=== PATIENT | male | born 1965 | race Caucasian/White ===

== ENCOUNTER 2023-06-08 18:58 | Inpatient (IN) | payer SELFPAY ==
[2023-06-08 19:53] VITALS: BMI 29.8
[2023-06-08] MEDS ORDERED: Acetaminophen 650 MG Suppository PR PRN (22:58)
[2023-06-08] MEDS ORDERED: Dextrose 50% Abboject 50 ML SYRINGE SLOW IVP PRN (23:00)
[2023-06-08] MEDS ORDERED: Dextrose 5% in Water 1,000 ML IV PRN (23:00)
[2023-06-08] MEDS ORDERED: Glucagon 1 MG/ML KIT IM PRN (23:00)
[2023-06-08] MEDS ORDERED: Morphine 4 MG/ML VIAL SLOW IVP PRN (23:07)
[2023-06-09] MEDS: Piperacillin/Tazobactam 3.375 GM in Sodium Chloride 0.9% 100 ML IVPB SCH (00:30)
[2023-06-09] MEDS: Vancomycin (BATCH) 1.25 GM in Premix 1 BAG IVPB SCH (01:51)
[2023-06-09] MEDS: Ondansetron PF 4 MG/2 ML Vial IVP PRN (05:24)
[2023-06-09 05:47] LABS: #Basophils 0.1 thou/uL (0.0-0.2); #Eosinphils 0.3 thou/uL (0.0-0.7); #Monocytes 0.5 thou/uL (0.11-0.59); #Neutrophils 6.9 thou/uL (1.40-6.50); %Basophils 0.7 % (0.0-1.0); %Eosinophils 3.1 % (0.0-10.0); %Lymphocytes 12.2 % (21.0-51.0); %Monocytes 5.8 % (0.0-10.0); %Neutrophils 77.6 % (42.0-75.0); Hematocrit 31.3 % (42.0-52.0); Hemoglobin 10.6 g/dL (14.0-18.0); Mean Corpuscular HGB CONC 33.9 g/dL (32.0-36.0); Mean Corpuscular Hemoglobin 28.9 pg (27.0-31.0); Mean Corpuscular Volume 85.3 fl (78.0-98.0); Mean Platelet Volume 9.2 fL (7.4-10.4); Platelet Count 236 10x3/uL (130-400); RBC Distribution Width 12.3 % (11.5-14.5); Red Blood Cell (RBC) Count 3.67 mill/uL (4.70-6.10); White Blood Cell (WBC) Count 8.9 10x3/uL (4.8-10.8)
[2023-06-09 06:08] LABS: Anion Gap 13 mmol/L (10-20); BUN (Urea Nitrogen) 16 mg/dL (8.4-25.7); Calc. Creatinine Clearance 99 mL/min (70-130); Calcium 8.5 mg/dL (7.8-10.44); Carbon Dioxide 21 mmol/L (22-29); Chloride 102 mmol/L (98-107); Estimated GFR 75; Glucose 170 mg/dL (70-105); Sodium 132 mmol/L (136-145)
[2023-06-09 08:09] LABS: Hemoglobin A1c 7.6 % (4.0-6.0)
[2023-06-09] MEDS ORDERED: Ondansetron PF 4 MG/2 ML Vial ONE ×2 (09:52→12:55)
[2023-06-09] MEDS ORDERED: Lidocaine 1% PF 5 ML VIAL ONE (09:52)
[2023-06-09] MEDS ORDERED: Midazolam HCl 2 mg/2 ml Vial ONE (09:52)
[2023-06-09] MEDS ORDERED: fentaNYL PF 100 MCG/2 ML SYRINGE ONE (09:52)
[2023-06-09] MEDS ORDERED: PROPOFOL 20 ML ONE (09:52)
[2023-06-09] MEDS ORDERED: SUCCINYLCHOLINE/SOD CL,ISO/PF 200 MG/10 ML SYRINGE FS ONE (09:59)
[2023-06-09] MEDS ORDERED: PHENYLEPHRINE-NS 100 MCG/ML 10 ML SYRINGE ONE ×2 (10:03→11:45)
[2023-06-09] MEDS ORDERED: Rocuronium Bromide 10 MG/ML (10ML VIAL) ONE (10:15)
[2023-06-09] MEDS ORDERED: Lidocaine 1% (PF) 30 ML VIAL ONE (10:33)
[2023-06-09] MEDS ORDERED: HYDROmorphone 2 MG/ML VIAL ONE (11:04)
[2023-06-09] MEDS ORDERED: Ondansetron PF 4 MG/2 ML Vial IVP PRN (12:28)
[2023-06-09] MEDS ORDERED: Ipratropium/Albuterol 3 ML NEB NEB PRN (12:28)
[2023-06-09] MEDS ORDERED: Promethazine HCl 25 MG/ML VIAL IM PRN ×2 (12:28→12:31)
[2023-06-09] MEDS ORDERED: Ondansetron HCl/PF 4 MG/2 ML Vial IVP PRN (12:31)
[2023-06-09] MEDS ORDERED: Promethazine HCl 25 MG SUPP PR PRN (12:38)
[2023-06-09] MEDS ORDERED: fentaNYL 50 mcg/mL 1 mL Vial ONE (12:49)
[2023-06-09] MEDS ORDERED: Promethazine HCl 25 MG/ML VIAL ONE (13:02)
[2023-06-09] MEDS ORDERED: Ketorolac Tromethamine 30 MG (1 mL) VIAL ONE (13:18)
[2023-06-09] MEDS ORDERED: Gabapentin 300 MG CAP ONE (13:31)
[2023-06-09] MEDS: Gabapentin 300 MG CAP PO SCH ×2 (13:35→21:11)
[2023-06-09] MEDS: Morphine 4 MG/ML VIAL SLOW IVP PRN (14:22)
[2023-06-09] MEDS: Vancomycin 1 GM in Premix 1 BAG IVPB SCH (14:25)
[2023-06-09] MEDS: Methocarbamol 500 MG TAB PO SCH ×2 (14:25→18:17)
[2023-06-09] MEDS ORDERED: Gabapentin 300 MG CAP PO SCH (15:00)
[2023-06-09] MEDS: Acetaminophen 325 MG TAB PO PRN (18:17)
[2023-06-09] MEDS: HumaLOG 300 UNITS/3 ML VIAL SC PRN (21:13)
[2023-06-10] MEDS: Ondansetron ODT 4 MG TAB PO PRN (04:31)
[2023-06-10] MEDS: HumaLOG 300 UNITS/3 ML VIAL SC PRN (04:48)
[2023-06-10 06:28] LABS: #Eosinphils 0.2 thou/uL (0.0-0.7); #Monocytes 0.7 thou/uL (0.11-0.59); #Neutrophils 7.2 thou/uL (1.40-6.50); %Basophils 0.4 % (0.0-1.0); %Eosinophils 1.7 % (0.0-10.0); %Lymphocytes 11.2 % (21.0-51.0); %Monocytes 7.8 % (0.0-10.0); %Neutrophils 78.4 % (42.0-75.0); Hematocrit 25.1 % (42.0-52.0); Hemoglobin 8.3 g/dL (14.0-18.0); Mean Corpuscular HGB CONC 33.1 g/dL (32.0-36.0); Mean Corpuscular Hemoglobin 29.2 pg (27.0-31.0); Mean Corpuscular Volume 88.4 fl (78.0-98.0); Mean Platelet Volume 9.2 fL (7.4-10.4); Platelet Count 212 10x3/uL (130-400); RBC Distribution Width 12.5 % (11.5-14.5); Red Blood Cell (RBC) Count 2.84 mill/uL (4.70-6.10); White Blood Cell (WBC) Count 9.2 10x3/uL (4.8-10.8)
[2023-06-10 06:47] LABS: Vancomycin, Random 29.3 ug/mL (See Comment)
[2023-06-10 06:50] LABS: Anion Gap 11 mmol/L (10-20); BUN (Urea Nitrogen) 24 mg/dL (8.4-25.7); Calc. Creatinine Clearance 50 mL/min (70-130); Carbon Dioxide 22 mmol/L (22-29); Chloride 103 mmol/L (98-107); Estimated GFR 33; Glucose 179 mg/dL (70-105); Potassium 4.3 mmol/L (3.5-5.1); Sodium 132 mmol/L (136-145)
[2023-06-10] MEDS: Lactated Ringer's 1,000 ML IV SCH (08:07)
[2023-06-10] MEDS: HYDROcodone/Acetaminophen 5/325 mg Tablet PO PRN (12:13)
[2023-06-10 12:50] LABS: Hemoglobin 8.2 g/dL (14.0-18.0)
[2023-06-11] MEDS: Vancomycin HCl 750 MG in Sodium Chloride 0.9% 250 ML 250 ML IVPB SCH (02:12)
[2023-06-11 05:21] LABS: Hematocrit 23.3 % (42.0-52.0); Hemoglobin 7.5 g/dL (14.0-18.0); Mean Corpuscular HGB CONC 32.2 g/dL (32.0-36.0); Mean Corpuscular Hemoglobin 29.1 pg (27.0-31.0); Mean Corpuscular Volume 90.3 fl (78.0-98.0); Mean Platelet Volume 9.4 fL (7.4-10.4); Platelet Count 207 10x3/uL (130-400); RBC Distribution Width 12.7 % (11.5-14.5); Red Blood Cell (RBC) Count 2.58 mill/uL (4.70-6.10); White Blood Cell (WBC) Count 10.1 10x3/uL (4.8-10.8)
[2023-06-11 05:40] LABS: Anion Gap 12 mmol/L (10-20); BUN (Urea Nitrogen) 28 mg/dL (8.4-25.7); Calc. Creatinine Clearance 38 mL/min (70-130); Carbon Dioxide 21 mmol/L (22-29); Chloride 104 mmol/L (98-107); Estimated GFR 24; Glucose 161 mg/dL (70-105); Potassium 4.4 mmol/L (3.5-5.1); Sodium 133 mmol/L (136-145)
[2023-06-11 05:44] LABS: Vancomycin, Random 33.6 ug/mL (See Comment)
[2023-06-11] MEDS ORDERED: Vancomycin Dose by Levels Sliding Scale (Wt 71-99) FS SCH (11:30)
[2023-06-11] MEDS: Lactated Ringer's 1,000 ML IV SCH (12:28)
[2023-06-11 13:46] LABS: Hematocrit 24.4 % (42.0-52.0); Hemoglobin 8.1 g/dL (14.0-18.0)
[2023-06-12 03:00] LABS: Vancomycin, Trough 15.3 ug/mL
[2023-06-12] MEDS: Vancomycin HCl 500 MG in Sodium Chloride 0.9% 100 ML IV SCH (07:00)
[2023-06-12 08:15] LABS: Hematocrit 24.6 % (42.0-52.0); Hemoglobin 7.9 g/dL (14.0-18.0); Mean Corpuscular HGB CONC 32.1 g/dL (32.0-36.0); Mean Corpuscular Hemoglobin 28.2 pg (27.0-31.0); Mean Corpuscular Volume 87.9 fl (78.0-98.0); Mean Platelet Volume 9.3 fL (7.4-10.4); Platelet Count 273 10x3/uL (130-400); RBC Distribution Width 12.7 % (11.5-14.5); White Blood Cell (WBC) Count 8.9 10x3/uL (4.8-10.8)
[2023-06-12 08:42] LABS: Anion Gap 15 mmol/L (10-20); BUN (Urea Nitrogen) 25 mg/dL (8.4-25.7); Calc. Creatinine Clearance 40 mL/min (70-130); Calcium 8.8 mg/dL (7.8-10.44); Carbon Dioxide 22 mmol/L (22-29); Chloride 104 mmol/L (98-107); Estimated GFR 26; Glucose 162 mg/dL (70-105); Potassium 5.2 mmol/L (3.5-5.1); Sodium 136 mmol/L (136-145)
[2023-06-12] MEDS: Insulin Regular 300 UNITS/3 ML VIAL IVP SCH (10:07)
[2023-06-12] MEDS: Furosemide 40 MG (4 mL) VIAL SLOW IVP SCH (15:00)
[2023-06-13 05:56] LABS: Hematocrit 22.4 % (42.0-52.0); Hemoglobin 7.5 g/dL (14.0-18.0); Mean Corpuscular HGB CONC 33.5 g/dL (32.0-36.0); Mean Corpuscular Volume 86.5 fL (78.0-98.0); Mean Platelet Volume 8.9 fL (7.4-10.4); Platelet Count 256 10x3/uL (130-400); RBC Distribution Width 12.5 % (11.5-14.5); Red Blood Cell (RBC) Count 2.59 mill/uL (4.70-6.10)
[2023-06-13 06:16] LABS: Anion Gap 12 mmol/L (10-20); BUN (Urea Nitrogen) 27 mg/dL (8.4-25.7); Calc. Creatinine Clearance 41 mL/min (70-130); Calcium 8.6 mg/dL (7.8-10.44); Carbon Dioxide 27 mmol/L (22-29); Chloride 101 mmol/L (98-107); Estimated GFR 26; Glucose 213 mg/dL (70-105); Sodium 136 mmol/L (136-145); Vancomycin, Trough 11.7 ug/mL
[2023-06-13] MEDS: Albumin 25% 25 GM (100 mL) BOT IVPB SCH (09:29)
[2023-06-13] MEDS: EPOETIN ALFA-EPBX (ESRD) 40,000 UNITS/ML VIAL SC SCH (13:23)
[2023-06-13] MEDS: Vancomycin HCl 750 MG in Sodium Chloride 0.9% 250 ML 250 ML IVPB SCH (13:25)
[2023-06-14 06:16] LABS: Anion Gap 14 mmol/L (10-20); BUN (Urea Nitrogen) 29 mg/dL (8.4-25.7); Calc. Creatinine Clearance 47 mL/min (70-130); Calcium 8.8 mg/dL (7.8-10.44); Carbon Dioxide 24 mmol/L (22-29); Chloride 101 mmol/L (98-107); Estimated GFR 31; Glucose 160 mg/dL (70-105); Magnesium 2.3 mg/dL (1.6-2.6); Potassium 4.3 mmol/L (3.5-5.1); Sodium 135 mmol/L (136-145)
[2023-06-14 13:04] LABS: Vancomycin, Trough 6.6 ug/mL
[2023-06-15 05:34] LABS: Hematocrit 23.9 % (42.0-52.0); Hemoglobin 7.7 g/dL (14.0-18.0); Mean Corpuscular HGB CONC 32.2 g/dL (32.0-36.0); Mean Corpuscular Hemoglobin 28.3 pg (27.0-31.0); Mean Corpuscular Volume 87.9 fL (78.0-98.0); Mean Platelet Volume 9.4 fL (7.4-10.4); Platelet Count 279 10x3/uL (130-400); RBC Distribution Width 12.8 % (11.5-14.5); Red Blood Cell (RBC) Count 2.72 mill/uL (4.70-6.10)
[2023-06-15 06:17] LABS: Anion Gap 16 mmol/L (10-20); BUN (Urea Nitrogen) 28 mg/dL (8.4-25.7); Calc. Creatinine Clearance 48 mL/min (70-130); Calcium 8.8 mg/dL (7.8-10.44); Carbon Dioxide 24 mmol/L (22-29); Chloride 101 mmol/L (98-107); Estimated GFR 31; Glucose 171 mg/dL (70-105); Potassium 4.1 mmol/L (3.5-5.1); Sodium 137 mmol/L (136-145)
[2023-06-15] MEDS: NIFEdipine XL 30 MG ER.TAB PO SCH (08:47)
[2023-06-15] MEDS: CEFAZOLIN 1 GM in Sodium Chloride 0.9% 100 ML IVPB SCH (13:02)
[2023-06-15] MEDS: metroNIDAZOLE 500 MG in Premix 1 BAG IVPB SCH (13:46)
[2023-06-16 16:15] LABS: Albumin-Ur 50.2 % (.); Alpha 1 - Ur 5.9 % (.); Alpha 2 - Ur 11.6 % (.); Beta-Ur 22.2 % (.); M-Spike,% Not Observed % (Not Observed); Protein, Urine 35.6 mg/dL (Not Estab.)
[2023-06-17 05:11] LABS: Hematocrit 28.8 % (42.0-52.0); Hemoglobin 9.6 g/dL (14.0-18.0); Mean Corpuscular HGB CONC 33.3 g/dL (32.0-36.0); Mean Corpuscular Hemoglobin 29.2 pg (27.0-31.0); Mean Corpuscular Volume 87.5 fL (78.0-98.0); Mean Platelet Volume 8.7 fL (7.4-10.4); Platelet Count 400 10x3/uL (130-400); Red Blood Cell (RBC) Count 3.29 mill/uL (4.70-6.10)
[2023-06-17 05:41] LABS: Anion Gap 15 mmol/L (10-20); BUN (Urea Nitrogen) 30 mg/dL (8.4-25.7); Calc. Creatinine Clearance 57 mL/min (70-130); Calcium 9.4 mg/dL (7.8-10.44); Carbon Dioxide 24 mmol/L (22-29); Chloride 104 mmol/L (98-107); Estimated GFR 39; Glucose 161 mg/dL (70-105); Potassium 4.2 mmol/L (3.5-5.1); Sodium 139 mmol/L (136-145)
[2023-06-17 16:49] VITALS: BP 152/74; TEMP 98.5
== END 2023-06-17 19:30 | DRG 239 ==
LOC: T4-B 19:22
PROVIDERS: ADMIT Student in an Organized Health Care Education/Training Program; ATTEND Internal Medicine
PROC: 0Y6J0Z2 Detachment at Left Lower Leg, Mid, Open Approach (ICD-10-PCS; 2023-06-09)
PROC: 30233J1 Transfusion of Nonautologous Serum Albumin into Peripheral Vein, Percutaneous Approach (ICD-10-PCS; principal; 2023-06-13)
DX: E11.52 Type 2 diabetes mellitus with diabetic peripheral angiopathy with gangrene (principal); J96.01 Acute respiratory failure with hypoxia; D62 Acute posthemorrhagic anemia; L03.116 Cellulitis of left lower limb; E87.1 Hypo-osmolality and hyponatremia; N17.9 Acute kidney failure, unspecified; N18.4 Chronic kidney disease, stage 4 (severe); R78.81 Bacteremia; E11.69 Type 2 diabetes mellitus with other specified complication; E11.621 Type 2 diabetes mellitus with foot ulcer; L97.529 Non-pressure chronic ulcer of other part of left foot with unspecified severity; F17.210 Nicotine dependence, cigarettes, uncomplicated; E11.22 Type 2 diabetes mellitus with diabetic chronic kidney disease; D63.1 Anemia in chronic kidney disease; I12.9 Hypertensive chronic kidney disease with stage 1 through stage 4 chronic kidney disease, or unspecified chronic kidney disease; E55.9 Vitamin D deficiency, unspecified; E87.5 Hyperkalemia; Z89.432 Acquired absence of left foot; Z71.6 Tobacco abuse counseling; Z79.4 Long term (current) use of insulin
CPT/HCPCS: 36415; 36416; 71045; 71046; 76770; 80048; 80202; 82306; 82570; 83036; 83735; 83970; 84100; 84156; 84166; 85025; 85027; 87040; 88307; 88311; 93306; 97139; J0690; J1170; J1815; J1885; J1940; J2001; J2250; J2270; J2405; J2543; J2550; J2704; J3010; J3370; J3370-JW; J3490; J7050; J7120; L8440; P9047; Q0162; Q5105